=== PATIENT | male | born 1950 | race Caucasian/White ===

== ENCOUNTER → 2021-01-12 08:23 | Outpatient (CLI) | payer MEDICARE, OTHER, SELFPAY ==
[2021-01-12 20:38] LABS: COVID19 - ORCAS (NP or Nasal) Negative (Negative)
== END ==
PROVIDERS: Visit Provider Physician Assistant
DX: Z20.822 Contact with and (suspected) exposure to COVID-19 (principal)
CPT/HCPCS: U0003

== ENCOUNTER → 2022-03-17 06:55 | Outpatient (CLI) | payer MEDICARE, OTHER, SELFPAY ==
[2022-03-17 22:15] LABS: COVID19 - ORCAS (NP or Nasal) Negative (Negative)
== END ==
PROVIDERS: PCP Physician Assistant; Visit Provider Family Medicine
DX: Z20.822 Contact with and (suspected) exposure to COVID-19 (principal); Z01.812 Encounter for preprocedural laboratory examination
CPT/HCPCS: C9803; U0003

== ENCOUNTER 2022-03-20 07:05 | Day surgery (SDC) | payer MEDICARE, OTHER, SELFPAY ==
--- NOTE | 2022-03-20 | PATH_ITS ---
[facility] Accession Number: [id number] . 01 Material submitted: . PART A: colon - TRANSVERSE COLON POLYP PART B: colon - ASCENDING COLON POLYP . 01 Diagnosis: A. Transverse Colon, Polyp, Biopsy: Tubular adenoma. . B. Ascending Colon, Polyp, Biopsy: Tubular adenoma. [facility] 03/22/2022 0959 Local . 01 Electronically signed: . Brianna Silva MD, Pathologist NPI- [id number] . 01 Gross description: . Part A: TRANSVERSE COLON POLYP: Received in formalin is 1 fragment(s) of melgar, soft tissue measuring 0.5 x 0.2 x 0.1 cm submitted entirely in 1 cassette(s) Part B: ASCENDING COLON POLYP: Received in formalin are multiple fragment(s) of melgar, soft tissue measuring 1.2 x 0.3 x 0.1 cm in aggregate submitted entirely in 1 cassette(s) /CPE 03/21/2022 1012 Local . 01 Pathologist provided ICD-10: D12.2, D12.3 . 01 CPT . 238158, 586102 Specimen Comment: A courtesy copy of this report has been sent to [phone], [phone] Specimen Comment: [id number] Performed at: 01 [facility] [address] [place] [address] [address], [place], [place] [id number] MD Jose Tuttle MD Phone: [phone]
[2022-03-20 07:34] VITALS: BP 119/62; PULSE 48; RESP 16; TEMP 36.2; O2SAT 97; BMI 24.5
[2022-03-20] MEDS: LACTATED RINGERS 1,000 ML 84 ML IV (07:43)
--- NOTE | 2022-03-20 07:48 | P.HP_ITS ---
History of Present Illness History of Present Illness Date Patient Seen: 03/20/22 Time Patient Seen: 07:56 Chief complaint: SDC Narrative: I reviewed the office note. He is here for index colon cancer screening. Patient History Family & Social History Social History: household members spouse Tobacco & Substance use: Smoking Status Never smoker alcohol intake former Substance Use Type does not use Meds Home Medications and Allergies Home Medications Medication Instructions Recorded Confirmed Type clopidogrel 75 mg tablet 75 mg PO QDAY #90 tabs 03/10/16 03/20/22 Rx metoprolol succinate 25 mg 25 mg PO QDAY ##90 03/10/16 03/20/22 Rx tablet,extended release 24 hr (Toprol XL) lisinopril 20 1 tab PO QDAY #90 tabs 05/30/16 03/20/22 Rx mg-hydrochlorothiazide 12.5 mg tablet atorvastatin 40 mg tablet 40 mg PO HS #90 tabs 06/12/16 Rx atorvastatin 40 mg tablet 40 mg PO HS #30 tabs 09/13/16 Rx atorvastatin 40 mg tablet 40 mg PO HS #90 tabs 10/19/16 03/20/22 Rx aspirin 81 mg tablet,delayed 81 mg PO DAILY 03/20/22 03/20/22 History release losartan 25 mg tablet 25 mg PO 03/20/22 History Allergies Allergy/AdvReac Type Severity Reaction Status Date / Time No Known Drug Allergies Allergy Verified 03/20/22 07:21 Review of Systems Review of Systems ROS: Yes All systems reviewed with the patient and are negative except as othe rwise documented Exam Vital Signs (past 8 hours): - 03/20/22 07:34 Temperature 97.2 F L Pulse Rate 48 L Respiratory Rate 16 Blood Pressure 119/62 Pulse Oximetry 97 Oxygen Delivery Method Room Air Oxygen Delivery Method Room Air Const General: cooperative HENMT Head: normal to inspection Eyes General: appearance normal, both eyes and all related structures Neck Neck: normal visual inspection Chest Chest: normal inspection of the chest Resp Effort & Inspection: normal respiratory effort Cardio Rate: regular rate GI Inspection: normal to inspection Skin General: no rashes or lesions noted Neuro General: patient alert and patient awake Extrem General: normal to inspection and no pedal edema Psych Appearance: grossly normal Assessment & Plan Assessment & Plan narrative: 71-year-old male here for colon cancer screening. Colonoscopy is pursued today. He is off Plavix for 5 days. Time Spent With Patient Critical Care time: I spent a total of [] minutes of critical care time on this patient's care today; this time is exclusive of procedural time.
--- NOTE | 2022-03-20 07:57 | PM.PREOP ---
Pre-operative Note COVID-19 COVID-19 status: Negative Result date/Date tested (Pos, Neg/Pending): 03/17/22 Criteria for continued procedure: Possibility delay results in more complex future surgery or treatment Interval Note History & Physical reviewed/Exam performed by Physician: Yes Changes to H&P: No ASA Class (for procedural sedation): II
--- NOTE | 2022-03-20 08:24 | PM.OP.COLON ---
Operative Date/Time/Diagnoses Date of procedure: 03/20/22 Time of procedure: 08:25 Pre-op diagnosis: Colon cancer screening Post-op diagnosis: same Procedure & Clinicians Study performed: Colonoscopy with hot snare polypectomy Same procedure as scheduled: Yes Indications: Colon cancer screening Surgeon: Jordan Catalan Procedure Notes SCOAP/Timeout: Done Procedure in detail: After the risks and benefits were explained, written and verbal informed consent was obtained. The patient was brought into the procedure room and placed into the left lateral decubitus position. Conscious sedation medication was applied as per nursing documentation. Digital rectal examination was accomplished. The scope was introduced into the patient and advanced under direct visualization to the cecum as identified by the appendiceal orifice and ileocecal valve. The scope was slowly withdrawn to carefully examine the mucosa for any defects or lesions. Comprehensive imaging was accomplished throughout the rectum including the dentate line. The colon was decompressed, the scope was then removed from the patient who tolerated the procedure well. Bowel prep fair Adult colonoscope Scope withdrawal time: 7 minutes Sedation minutes: 18 Impression: Patient had fairly extensive diverticulosis extending from the sigmoid all the way through to the ascending colon. There was a small 5 mm polyp in the ascending and a 6 mm polyp in the transverse colon both removed with hot snare polypectomy. Within the limitations of bowel prep no additional pathology was appreciated throughout. Endoscopic diagnosis 1. Diverticulosis 2. Colon polyps Post-procedure Plan for aftercare: 1. Await histopathology. 2. Repeat colonoscopy 5 years 3. Okay to restart Plavix in the next couple of days. Disposition: PACU
[2022-03-20 08:26] VITALS: BP 115/59; PULSE 47; RESP 16; TEMP 36.6; O2SAT 99
[2022-03-20 08:31] VITALS: BP 121/64; PULSE 51; RESP 16; O2SAT 99
[2022-03-20 08:36] VITALS: BP 146/61; PULSE 46; RESP 14; O2SAT 99
[2022-03-20 09:15] VITALS: BP 136/80; PULSE 50; RESP 18; TEMP 36.6; O2SAT 97
== END 2022-03-20 08:55 | disposition home or self-care (01) ==
PROVIDERS: PCP Family Medicine; Referring Provider Internal Medicine Gastroenterology; Visit Provider Internal Medicine Gastroenterology
PROC: 0DJD8ZZ Inspection of Lower Intestinal Tract, Via Natural or Artificial Opening Endoscopic (ICD-10-PCS; CPT 45378; principal; 2022-03-20 08:00)
DX: Z12.11 Encounter for screening for malignant neoplasm of colon (principal); K57.30 Diverticulosis of large intestine without perforation or abscess without bleeding; D12.3 Benign neoplasm of transverse colon; D12.2 Benign neoplasm of ascending colon
CPT/HCPCS: 45385; J2250; J2704; J3010

== ENCOUNTER 2024-01-30 21:18 | Emergency (ER) | payer MEDICARE, OTHER, SELFPAY ==
[2024-01-30 21:50] VITALS: BP 172/79; PULSE 60; RESP 16; TEMP 36.6; O2SAT 99; BMI 24.5
--- NOTE | 2024-01-30 21:56 | DI.RAD.S_ITS ---
PROCEDURE: XR FINGER RT MIN 2V INDICATIONS: laceration TECHNIQUE: AP hand, 2 views of the 2nd finger(s) acquired. COMPARISON: None. FINDINGS: Bones: Minimally displaced sagittal tuft fracture through the 2nd distal phalanx. Findings are on a background of polyarticular mild joint space loss and moderate marginal spurring and juxta cortical lucency. Soft tissues: Soft tissue swelling at the 2nd distal digit. No radiodense foreign bodies. Mild peripheral vascular calcification. IMPRESSION: Right distal phalanx tuft fracture. No underlying foreign body. Findings on a background possibly inflammatory arthritis. Correlate with serology. Dictated by: Karolina Lorenzo M.D. on 01/30/2024 at 22:28 Approved by: Karolina Lorenzo M.D. on 01/30/2024 at 22:30
--- NOTE | 2024-01-30 23:39 | ED.WOUNDLAC ---
HPI - Wound/Laceration General Chief Complaint: Wound/Laceration Stated Complaint: rt hand cut with drill Time Seen by Provider: 01/30/24 23:39 Source: patient Mode of arrival: Ambulatory History of Present Illness HPI narrative: Patient is a 73-year-old male history of coronary artery disease on Plavix presenting today with right index finger. He was changing a drill bit to drill accidentally got turned [place] went through his finger. No numbness or tingling. Related Data Home Medications Medication Instructions Recorded Confirmed aspirin 81 mg tablet,delayed 81 mg PO DAILY 03/20/22 01/30/24 release atorvastatin 80 mg tablet 80 mg PO DAILY 01/30/24 01/30/24 clopidogrel 75 mg tablet 75 mg PO DAILY 01/30/24 01/30/24 diphenhydramine HCl 25 mg capsule 25 mg PO BEDTIME 01/30/24 01/30/24 (Benadryl) losartan 25 mg tablet 25 mg PO DAILY 01/30/24 01/30/24 Previous Rx's Medication Instructions Recorded metoprolol succinate 25 mg 25 mg PO QDAY ##90 03/10/16 tablet,extended release 24 hr (Toprol XL) cephalexin 500 mg capsule 500 mg PO BID 7 days #14 caps 01/31/24 hydrocodone 5 mg-acetaminophen 325 1 tab PO Q6H PRN pain #10 tabs 01/31/24 mg tablet Allergies Allergy/AdvReac Type Severity Reaction Status Date / Time No Known Drug Allergies Allergy Verified 03/20/22 07:21 Patient History Social History household members: spouse Smoking Status: Never smoker alcohol intake: former Smoking Status: Never smoker Substance Use Type: does not use Exam Initial Vital Signs Initial Vital Signs: Vital Signs Temperature 97.8 F 01/30/24 21:50 Pulse Rate 60 01/30/24 21:50 Respiratory Rate 16 01/30/24 21:50 Blood Pressure 172/79 H 01/30/24 21:50 Pulse Oximetry 99 01/30/24 21:50 Oxygen Delivery Method Room Air 01/30/24 21:50 GENERAL: Well-appearing, well-nourished and in no acute distress. CARDIOVASCULAR: peripheral pulses in tact, cap refill <2 sec RESPIRATORY: No respiratory distress, speaks in full sentences without difficulty EXTREMITIES: Normal range of motion, no clubbing or edema. Neurovascularly intact NEUROLOGICAL: Cranial nerves II through XII grossly intact. Normal gait and speech. SKIN: Right index finger nail bed injury nail has been completely removed from cuticle Procedures Laceration Repair Laceration 1: Site: hand (Right index finger) Side (If applicable): right Description: irregular Depth: simple, single layer Local Anesthetic: lidocaine 1% Amount of anesthesia used (mL): 4 Pre-repair: wound explored, irrigated extensively and deep structures intact Skin layer closed with: nylon Skin layer suture size: 4-0 Number of sutures: 4 Technique: simple, interrupted Nerve Block Nerve Block 1: Time out performed: Yes Local Anesthetic: lidocaine 1% Amount of anesthesia used (mL): 4 Side: right Nerve Blocks: digital Course Orders Ordered: ED Orders 01/30/24 21:56 XR finger RT min 2V Stat Discontinued Medications Hydrocodone Bitart/Acetaminophen (Hydrocodone/Acet 5/325 Prepack) 1 bottle MISC DIRECTED ONE Stop: 01/31/24 01:12 Last Admin: 01/31/24 01:17 Dose: 1 bottle Documented By: RAFAEL Cephalexin HCl (Cephalexin 250 Mg Capsule) 500 mg PO NOW ONE Stop: 01/31/24 01:12 Last Admin: 01/31/24 01:17 Dose: 500 mg Documented By: RAFAEL Diphtheria/Tetanus/Acell Pertussis (Tet,Diph,Pertuss(Acell),Vac/Pf 0.5 Ml Syringe) 0.5 ml IM .ONCE ONE Stop: 01/31/24 01:26 Last Admin: 01/31/24 01:33 Dose: 0.5 ml Documented By: Lidocaine HCl (Lidocaine 1% (Pf) 5 Ml) 5 ml INJ NOW ONE Stop: 01/31/24 00:32 Last Admin: 01/31/24 00:36 Dose: Not Given Documented By: Lidocaine HCl (Lidocaine 1% 20 Ml) 20 ml INJ INTRA-OP ONE Stop: 01/31/24 00:35 Last Admin: 01/31/24 01:03 Dose: 20 ml Documented By: Lorazepam (Lorazepam 0.5 Mg Tablet) 0.5 mg PO NOW ONE Stop: 01/31/24 00:53 Last Admin: 01/31/24 00:56 Dose: 0.5 mg Documented By: RAFAEL Vital Signs Vital signs: Vital Signs - 8 hr 01/30/24 21:50 01/30/24 23:42 01/31/24 00:19 Temperature 97.8 F Pulse Rate 60 60 60 Respiratory Rate 16 16 Blood Pressure 172/79 H 164/87 H Pulse Oximetry 99 97 97 Oxygen Delivery Method Room Air Room Air 01/31/24 00:30 01/31/24 01:00 Temperature Pulse Rate 61 60 Respiratory Rate Blood Pressure Pulse Oximetry 98 98 Oxygen Delivery Method Room Air MDM - Wound/Laceration Imaging Data Extremity x-ray #1: Radiologist's Impression: PROCEDURE: XR FINGER RT MIN 2V INDICATIONS: laceration TECHNIQUE: AP hand, 2 views of the 2nd finger(s) acquired. COMPARISON: None. FINDINGS: Bones: Minimally displaced sagittal tuft fracture through the 2nd distal phalanx. Findings are on a background of polyarticular mild joint space loss and moderate marginal spurring and juxta cortical lucency. Soft tissues: Soft tissue swelling at the 2nd distal digit. No radiodense foreign bodies. Mild peripheral vascular calcification. IMPRESSION: Right distal phalanx tuft fracture. No underlying foreign body. Findings on a background possibly inflammatory arthritis. Correlate with serology. Dictated by: Karolina Lorenzo M.D. on 01/30/2024 at 22:28 [facility] Narrative Medical decision making narrative: Patient 73-year-old male presents today with right index finger injury secondary to a drill. He is significant injury to his nail bed the nail itself is almost completely avulsed. I do not see any bone exposure. Nail is placed back in the cuticle. Unfortunately nail bed is not repairable. There is 1 area on the side that did receive 2 stitches. Wound was irrigated with 500 cc of fluid by nurse. He is empirically given Keflex. He is very anxious during the procedure and given a dose of Ativan as well. X-ray has been reviewed he does have a distal tuft fracture. He is placed in a splint. Discharge Plan Departure Patient Disposition: Home Clinical Impression: Laceration of right index finger w/o foreign body with damage to nail, Open fracture of distal phalanx of right index finger Instructions: Finger Fracture, DI for Nail Bed Injury Activity Restrictions/Additional Instructions: *You have been diagnosed with finger fracture and laceration *What to do: Keep sutures in for about 7-10 days. Now may take longer to heal. Keep hand clean and dry with soap and water. I would definitely cover it will your out and working. You also broke the tip of your finger this should heal in about 6-8 weeks. *Continue to take medications as directed Keflex 500 mg twice a day for 7 days [place] 1 tablet every 6 hours if needed for severe pain *Follow up with your primary care provider in 2-3 days or call [phone] Call and follow-up with [facility] *Return to ER if you should have increasing redness swelling drainage or any new, worsening or concerning symptoms CONTROLLED SUBSTANCE DISCHARGE (Narcotoic/benzodiazepine/Flexeril/Phenergan) 1. You have been prescribed narcotic medications, it does have acetaminophen/Tylenol/paracetamol in it, DO NOT TAKE MORE THAN 4,00mg in 24 hours of Tylenol. TRAMADOL DOES NOT CONTAIN TYLENOL 2. Please understand that we cannot provide further refills of narcotics, benzodiazepines or controlled substances through the ED and her pain management will need to be through your provider. 3. While on these medications you cannot drive or operate heavy machinery. 4. You cannot sign legal documents or perform any duties such as this. 5. As long as you're taking opiate pain medications he should also be taking a stool softener such as Colace, Dulcolax, MiraLAX or prune juice, to help avoid constipation. Prescriptions: New hydrocodone-acetaminophen 5-325 mg tablet 1 tab PO Q6H PRN (Reason: pain) Qty: 10 0RF cephalexin 500 mg capsule 500 mg PO BID 7 Days Qty: 14 0RF No Action metoprolol succinate [Toprol XL] 25 MG tablet extended release 24 hr 25 mg PO QDAY Qty: 90 3RF aspirin 81 mg Tablet,Delayed Release (Dr/Ec) 81 mg PO DAILY atorvastatin 80 mg tablet 80 mg PO DAILY clopidogrel 75 mg tablet 75 mg PO DAILY losartan 25 mg tablet 25 mg PO DAILY diphenhydramine HCl [Benadryl] 25 mg Capsule 25 mg PO BEDTIME Referrals: Caleb Bains MD [Primary Care Provider] - Stand Alone Forms: Patient Portal/API/Survey
[2024-01-30 23:42] VITALS: BP 164/87; PULSE 60; RESP 16; O2SAT 97
[2024-01-31 00:19] VITALS: PULSE 60; O2SAT 97
[2024-01-31 00:30] VITALS: PULSE 61; O2SAT 98
[2024-01-31] MEDS: LORazepam 0.5 MG TABLET PO (00:56)
[2024-01-31 01:00] VITALS: PULSE 60; O2SAT 98
[2024-01-31] MEDS: LIDOCAINE 1% 20 ML INJ (01:03)
[2024-01-31] MEDS: HYDROCODONE/ACET 5/325 PREPACK 1 BOTTLE MISC (01:17)
[2024-01-31] MEDS: cephALEXin 250 MG CAPSULE 500 MG PO (01:17)
[2024-01-31] MEDS: TET,DIPH,PERTUSS(ACELL),VAC/PF 0.5 ML SYRINGE IM (01:33)
== END 2024-01-31 01:36 | disposition home or self-care (01) ==
PROVIDERS: Emergency Provider Emergency Medicine; PCP Family Medicine
DX: S62.630A Displaced fracture of distal phalanx of right index finger, initial encounter for closed fracture (principal); S61.310A Laceration without foreign body of right index finger with damage to nail, initial encounter; W29.8XXA Contact with other powered hand tools and household machinery, initial encounter; Z23 Encounter for immunization
CPT/HCPCS: 12001; 64450; 73140; 90471; 99283; 99284; 90715